=== PATIENT | female | born 1980 | race Caucasian/White ===

== ENCOUNTER 2016-10-21 14:35 | Inpatient (IN) | payer BC, OTHER ==
[~2016-10-21] VITALS: Ht 170.2 cm; Wt 99.8 kg
--- OUTSIDE RECORDS SUMMARY | 2016-10-21 14:58 | XMS REPORT | Continuity of Care Document ---
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 Medications No medication information available. Social History Social History Problem Response Recorded Date/Time Recent Foreign Travel No 05/16/2016 7:51am Recent Infectious Disease Exposure No 05/16/2016 7:51am Hospital Discharge Instructions No hospital discharge instructions. Plan of Care Discharge Date 05/16/16 8:16am Instructions/Education Provided DR. ANG-POST EPIDURAL INST Prescriptions See Medication Section Functional Status No functional status results. Allergies, Adverse Reactions, Alerts No allergy information available. Immunizations No immunization records. Vital Signs Acute Vital Signs Vital Response Date/Time Temperature (Fahrenheit) 97.6 degrees F (97.6 - 99.5) 05/16/2016 7:50am Temperature (Calculated Celsius) 36.11636 degrees C (36.4 - 37.5) 05/16/2016 7:50am Temperature Source Tympanic 05/16/2016 7:50am Pulse Rate (adult) 106 bpm (60 - 90) 05/16/2016 8:15am Respiratory Rate 18 bpm (12 - 24) 05/16/2016 8:15am O2 Sat by Pulse Oximetry 98 % (88 - 100) 05/16/2016 8:15am Blood Pressure 144/104 mm Hg 05/16/2016 8:15am Blood Pressure Mean 111 mm Hg 05/16/2016 7:50am Pain Numeric Pain Scale 8 05/16/2016 8:15am Height (Feet) 5 feet 05/16/2016 7:49am Height (Inches) 7.00 inches 05/16/2016 7:49am Height (Calculated Centimeters) 170.839906 cm 05/16/2016 7:49am Weight (Pounds) 220 pounds 05/16/2016 7:49am Weight (Ounces) 0.0 oz 05/16/2016 7:49am Weight (Calculated Grams) 16743.32 gm 05/16/2016 7:49am Weight (Calculated Kilograms) 99.644186 kilograms 05/16/2016 7:49am Calculated BMI 34.5 05/16/2016 7:49am Results No known relevant diagnostic tests, laboratory data and/or discharge summary. Procedures No known history of procedures. Encounters Encounter Location Arrival/Admit Date Discharge/Depart Date Attending Provider Departed Clinic [facility] 05/16/16 7:28am 05/16/16 8: 16am NICHOLAS ANG MD
[2016-10-21] MEDS ORDERED: HYDROcodone/APAP 5 MG/325 MG (LORTAB) TAB PO PRN (15:00)
[2016-10-21] MEDS ORDERED: ACETAMINOPHEN 500 MG TAB (TYLENOL) PO PRN (15:00)
[2016-10-21] MEDS ORDERED: RT-BUDESONIDE NEBS 0.5 MG/2ML (PULMICORT) AMP ONE (15:00)
[2016-10-21] MEDS ORDERED: LACTULOSE SYRUP 10GM/15ML (ENULOSE) 30ML UDC PO PRN (15:00)
[2016-10-21] MEDS ORDERED: SENNA W/DOCUSATE (SENOKOT S) TABLET PO PRN (15:00)
[2016-10-21] MEDS ORDERED: ONDANSETRON 4 MG/2 ML (SDV) Z0FRAN IVP PRN (15:00)
[2016-10-21] MEDS ORDERED: POLYETHYLENE GLYCOL 17 GM (MIRALAX) PACK PO PRN (15:00)
[2016-10-21] MEDS ORDERED: RT-ALBUTEROL/IPRATROPIUM 3 ML (DUONEB) VIAL ONE (15:01)
[2016-10-21] MEDS: RT-ALBUTEROL/IPRATROPIUM 3 ML (DUONEB) VIAL INH SCH ×3 (15:10→22:26)
[2016-10-21] MEDS: RT-BUDESONIDE NEBS 0.5 MG/2ML (PULMICORT) AMP INH SCH (15:10)
[2016-10-21] MEDS ORDERED: CATHETER FLUSH 10 ML SYR IV PRN (15:15)
[2016-10-21] MEDS: cefTRIAXone INJECTION 1,000 MG in NORMAL SALINE (BAXTER MINI) 50 ML IV SCH (15:21)
[2016-10-21] MEDS: AZITHROMYCIN IV ADD-VANTAGE 500 MG in SODIUM CHLORIDE (ADD-VANTAGE) 250 ML IV SCH (15:22)
[2016-10-21] MEDS: ALPRAZolam 0.5 MG (XANAX) TAB PO PRN (15:26)
[2016-10-21] MEDS: ENOXAPARIN 40 MG/0.4 ML (LOVENOX) SYR SC SCH (15:26)
[2016-10-21] MEDS ORDERED: NS 100 ML (IVPB) BAG IV ONE (15:30)
[2016-10-21] MEDS ORDERED: MIRT30TA PO (15:30)
[2016-10-21] MEDS ORDERED: IOHEXOL 350 MG/ML 150 ML (OMNIPAQUE 350) VIAL IV ONE (15:30)
[2016-10-21] MEDS ORDERED: FLUT1DIS26 IH (15:30)
[2016-10-21] MEDS ORDERED: TRAZ100T92 PO (15:30)
[2016-10-21] MEDS ORDERED: ALPR0.5T7 PO (15:30)
[2016-10-21] MEDS ORDERED: HYDR-3781 PO (15:30)
[2016-10-21] MEDS ORDERED: methylPREDNISolone 40 MG/ML (Solu-MEDROL) VIAL IV SCH (15:45)
--- NOTE | 2016-10-21 16:08 | Diagnostic Imaging Report ---
INDICATION: Dyspnea and chest pain. TIME OF EXAMINATION: 1608 hours. FINDINGS: The heart size and pulmonary vascularity are within normal limits. The lungs are clear bilaterally. IMPRESSION: Unremarkable chest. Dictated by: Dictated on workstation # [id number]
--- NOTE | 2016-10-21 16:16 | Diagnostic Imaging Report ---
PROCEDURE: CT angiography of the chest with contrast. TECHNIQUE: Multiple contiguous axial images were obtained through the chest after uneventful bolus administration of intravenous contrast. Reconstructed CTA MIP acquisitions were also performed. INDICATION: Shortness of breath. FINDINGS: There are no prior CTA chest examinations available for comparison. The plain film examination of the chest performed earlier today failed to show any sign of an acute cardiopulmonary abnormality. On this exam, there is no defect within the pulmonary arteries to indicate a pulmonary embolus. The aorta is not abnormally dilated, and there is no sign of a dissection. The heart size is within normal limits. Coronary artery calcifications were not identified. The lungs are generally clear and well aerated. There is no sign of failure, pneumonia, or pleural effusion to suggest an acute abnormality. There is no mediastinal or hilar adenopathy. The thyroid gland, where visualized, is generally unremarkable. There is no obvious breast mass. The sections through the upper abdomen show that the liver is prominent and of lower density than usually seen. This appearance does suggest fatty metamorphosis. The bone windows show no evidence for a fracture or for a destructive lesion. IMPRESSION: 1. There is no evidence for an acute cardiopulmonary abnormality. In particular, there is no sign of a pulmonary embolus or of a dissection. 2. The appearance of the liver does suggest fatty metamorphosis. 3. These results were discussed with Dr. Alejandrina Andersen. Dictated by: Dictated on workstation # [id number]
[2016-10-21 16:17] VITALS: BP 116/82
[2016-10-21 16:27] LABS: BASOPHILS # (AUTO) 0.1 10^3/uL (0.0-0.1); BASOPHILS % (AUTO) 1 % (0-10); EOSINOPHILS # (AUTO) 0.1 10^3/uL (0.0-0.3); EOSINOPHILS % (AUTO) 1 % (0-10); LYMPHOCYTES # (AUTO) 2.3 X 10^3 (1.0-4.0); LYMPHOCYTES % (AUTO) 34 % (12-44); MEAN CORPUSCULAR HEMOGLOBIN 32 PG (25-34); MEAN CORPUSCULAR HGB CONC 35 G/DL (32-36); MEAN CORPUSCULAR VOLUME 89 FL (80-99); MEAN PLATELET VOLUME 9.6 FL (7.4-10.4); MONOCYTES # (AUTO) 0.5 X 10^3 (0.0-1.0); MONOCYTES % (AUTO) 8 % (0-12); NEUTROPHILS # (AUTO) 3.8 X 10^3 (1.8-7.8); NEUTROPHILS % (AUTO) 57 % (42-75); PLATELET COUNT 256 10^3/uL (130-400); RED BLOOD COUNT 4.73 10^6/uL (4.35-5.85); WHITE BLOOD COUNT 6.7 10^3/uL (4.3-11.0)
[2016-10-21 17:01] LABS: ALANINE AMINOTRANSFERASE 72 U/L (0-55); ANION GAP 10 MMOL/L (5-14); ASPARTATE AMINO TRANSFERASE 38 U/L (5-34); BILIRUBIN,TOTAL 0.5 MG/DL (0.1-1.0); BLOOD UREA NITROGEN 11 MG/DL (7-18); BUN/CREATININE RATIO 17; CALCIUM 8.7 MG/DL (8.5-10.1); CARBON DIOXIDE 21 MMOL/L (21-32); CHLORIDE 103 MMOL/L (98-107); CREATININE SERUM 0.66 MG/DL (0.60-1.30); GFR ESTIMATED > 60; GLUCOSE 103 MG/DL (70-105); POTASSIUM 3.1 MMOL/L (3.6-5.0); SODIUM 134 MMOL/L (135-145); TOTAL PROTEIN 6.3 G/DL (6.4-8.2)
[2016-10-21 17:06] LABS: TROPONIN I < 0.30 NG/ML (<0.30)
[2016-10-21] MEDS ORDERED: NS IV 1000 ML 1,000 ML IV ONE (17:15)
[2016-10-21] MEDS ORDERED: MAGNESIUM 1 GM/100 ML IVPB 100 ML IV ONE (17:15)
[2016-10-21] MEDS: methylPREDNISolone 125 MG (Solu-MEDROL) VIAL IV SCH (17:28)
[2016-10-21 17:29] LABS: PROTHROMBIN TIME PATIENT 13.2 SEC (12.2-14.7)
[2016-10-21] MEDS: POTASSIUM CL 10MEQ/50ML IVPB 50 ML IV SCH ×4 (18:46→22:55)
[2016-10-21 18:54] LABS: ABG BASE EXCESS -1.2 MMOL/L (-2.5-2.5); ABG HCO3 23 MMOL/L (23-27); ABG OXYGEN SATURATION 96 % (94-100); ABG PCO2 38 MMHG (35-45); ABG PO2 65 MMHG (79-93); ABG TCO2 24.4 MMOL/L (21.0-31.0); PATIENT TEMP 98.4
[2016-10-21 19:05] VITALS: BP 103/64
[2016-10-21] MEDS: NS IV 1000 ML 1,000 ML IV SCH (19:28)
[2016-10-21 19:39] LABS: BILIRUBIN,URINE NEGATIVE (NEGATIVE); KETONES,URINE NEGATIVE (NEGATIVE); LEUKOCYTE ESTERASE ,URINE 1+ (NEGATIVE); NITRITE,URINE NEGATIVE (NEGATIVE); PH,URINE 5 (5-9); PROTEIN,URINE 2+ (NEGATIVE); UROBILINOGEN,URINE NORMAL (NORMAL)
[2016-10-21 19:50] LABS: WBC,URINE 0-2 /HPF
[2016-10-21] MEDS: CATHETER FLUSH 10 ML SYR IV SCH (20:48)
[2016-10-21] MEDS ORDERED: traZODone 100 MG (DESYREL) TAB ONE (21:31)
[2016-10-21] MEDS ORDERED: MIRTAZAPINE 15 MG (REMERON) TAB ONE (21:31)
[2016-10-21] MEDS: MIRTAZAPINE 15 MG (REMERON) TAB PO SCH (21:45)
[2016-10-21] MEDS: traZODone 100 MG (DESYREL) TAB PO SCH (21:45)
[2016-10-21 23:40] VITALS: BP 113/71
[2016-10-22] MEDS: NS IV 1000 ML 1,000 ML IV SCH ×2 (00:37→06:08)
[2016-10-22] MEDS: methylPREDNISolone 125 MG (Solu-MEDROL) VIAL IV SCH ×3 (00:37→21:33)
[2016-10-22] MEDS: RT-ALBUTEROL/IPRATROPIUM 3 ML (DUONEB) VIAL INH SCH ×6 (02:41→22:14)
[2016-10-22 03:46] VITALS: BP 112/75
[2016-10-22] MEDS: CATHETER FLUSH 10 ML SYR IV SCH ×3 (06:00→21:32)
[2016-10-22 06:31] LABS: BASOPHILS % (AUTO) 0 % (0-10); EOSINOPHILS % (AUTO) 0 % (0-10); LYMPHOCYTES % (AUTO) 9 % (12-44); MEAN CORPUSCULAR HEMOGLOBIN 31 PG (25-34); MEAN CORPUSCULAR HGB CONC 35 G/DL (32-36); MEAN CORPUSCULAR VOLUME 90 FL (80-99); MEAN PLATELET VOLUME 9.6 FL (7.4-10.4); MONOCYTES # (AUTO) 0.2 X 10^3 (0.0-1.0); MONOCYTES % (AUTO) 1 % (0-12); NEUTROPHILS # (AUTO) 9.9 X 10^3 (1.8-7.8); NEUTROPHILS % (AUTO) 89 % (42-75); PLATELET COUNT 263 10^3/uL (130-400); RED CELL DISTRIBUTION WIDTH 12.9 % (10.0-14.5); WHITE BLOOD COUNT 11.1 10^3/uL (4.3-11.0)
[2016-10-22 06:50] LABS: BAND NEUTROPHILS 2 %; BASOPHILS % (MANUAL) 0 %; EOSINOPHILS % (MANUAL) 0 %; LYMPHOCYTES % (MANUAL) 8 %; NEUTROPHILS % (MANUAL) 88 %; REACTIVE LYMPHOCYTES 2 %
--- NOTE | 2016-10-22 06:53 | Pulmonary Consultation ---
History of Present Illness History of Present Illness Date of Consultation 10/22/16 06:51 Date of Admission History of Present Illness 36yo WF with hx of asthma, and anxiety directly admitted from Dr. Andersen's office secondary to asthma AE and progressive SOB. Pt has been treated as out patient for acute bronchitis however has continued to worsen despite treatment. I am consulted for pulmonary management. Allergies and Home Medications Allergies Coded Allergies: zinc oxide (Verified Allergy, Unknown, 10/21/16) Home Medications Alprazolam 0.5 Mg Tablet 0.5 MG PO DAILY PRN PRN ANXIETY (Reported) Amoxicillin/Potassium Clav 1 Each Tablet #8 1 EACH PO BID Prescribed by: YASH ANDERSEN on 10/23/16927 Fluticasone/Salmeterol 1 Each Blst.w.dev 1 PUFF IH BID (Reported) HAS NOT PICKED UP FROM PHARMACY YET Hydroxyzine Pamoate 25 Mg Capsule 25 MG PO QID PRN PRN ANXIETY (Reported) Ipratropium/Albuterol Sulfate 3 Ml Ampul.neb #90 3 ML INH RTQ4HR Prescribed by: YASH ANDERSEN on 10/23/16927 Lactulose 20 Gm/30 Ml Solution #8 10 GM PO BID PRN PRN CONSTIPATION Prescribed by: YASH ANDERSEN on 10/23/16927 Mirtazapine 30 Mg Tablet 45 MG PO HS (Reported) TAKES 1 & 1/2 OF A (30 MG) TABLET Prednisone 10 Mg Tab.ds.pk #42 10 MG PO DAILY Take 6 tabs(60mg)daily,decrease by 1 tab(10mg)every other day. Prescribed by: YASH ANDERSEN on 10/23/16927 Trazodone HCl 100 Mg Tablet 100 MG PO HS (Reported) Past Rxpgysl-Xsgppa-Qdfqyj Hx Patient Social History Alcohol Use: Denies Use Recreational Drug Use: Yes (uses pot about 2 times a week ) Drug of Choice: pot Smoking Status: Current Everyday Smoker Type Used: Cigarettes Recent Foreign Travel: No Contact w/Someone Who Travel: No Recent Hopitalizations: No Physical Abuse Screen: No Sexual Abuse: No Immunizations Up To Date Date of Influenza Vaccine: Jul 15, 2016 Seasonal Allergies Seasonal Allergies: No Respiratory Respiratory Disorders: Asthma Psychosocial Behavioral Health Disorders: Anxiety, Depression Blood Transfusions Adverse Reaction to a Blood Tr: No Family Medical History Family Medial History: Diabetes mellitus 19 FATHER, Onset:40's - 50 Review of Systems Constitutional: No: Chills, Fever, Malaise, Other, Sweats, Weakness Eyes: No: Conjunctivae inflammation, Eyelid inflammation, Other, Pain, Redness , Vision change ENT: No: Ear discharge, Ear pain, Mouth pain, Mouth swelling, Nose congestion, Nose discharge, Nose pain, Other, Throat pain, Throat swelling Respiratory: : Cough: Dry: SOB with excertion: Shortness of breath Cardiovascular: : Paroxysmal Noc. DyspneaNo: Chest Pain, Edema, Lt Headedness, Orthopnea, Other, Palpitations Gastrointestinal: No: Abdominal Pain, Constipation, Diarrhea, Hematochezia, Melena, Nausea, Other, Vomiting Genitourinary: No Dysuria, No Frequency, No Incontinence, No Hematuria, No Retention, No Other Neurological: : Weakness Exam Exam Vital Signs Date Time Temp Pulse Resp B/P Pulse Ox O2 Delivery O2 Flow Rate FiO2 10/22/16 03:46 98.1 97 112/75 95 Room Air 10/22/16 02:41 92 10/22/16 01:00 96 10/21/16 23:40 98.5 107 113/71 94 Room Air 10/21/16 22:26 93 10/21/16 21:00 Room Air 10/21/16 19:12 92 10/21/16 19:05 97.8 88 20 103/64 96 Room Air 10/21/16 19:00 103 10/21/16 16:46 99 10/21/16 16:17 98.1 98 24 116/82 98 Nasal Cannula 2.00 10/21/16 15:15 2.00 10/21/16 15:10 99 2.00 10/21/16 15:00 Nasal Cannula 2.00 I & O 10/22/16 07:00 Intake Total 2000 ml Output Total 300 ml Balance 1700 ml General Appearance: No Apparent Distress WD/WN HEENT: PERRL/EOMI Neck: Full Range of Motion Normal Inspection Non Tender Respiratory: Chest Non Tender Decreased Breath Sounds Cardiovascular: Regular Rate, Rhythm No Edema No Gallop Gastrointestinal: normal bowel sounds non tender soft Extremity: Normal Capillary Refill Neurologic/Psychiatric: Alert Oriented x3 Results Lab Laboratory Tests 10/21/16 16:10 10/22/16 06:14 Assessment/Plan Assessment/Plan -status asthmaticus -SVNs -solumedrol Pt is feeling much improved Clinical Quality Measures DVT/VTE Risk/Contraindication: Risk Factor Score Per Nursin RFS Level Per Nursing on Admit: 2=Moderate RADHIKA BURGOS DO Oct 22, 2016 06:53
[2016-10-22 07:14] LABS: ALANINE AMINOTRANSFERASE 61 U/L (0-55); ANION GAP 11 MMOL/L (5-14); ASPARTATE AMINO TRANSFERASE 24 U/L (5-34); BILIRUBIN,TOTAL 0.3 MG/DL (0.1-1.0); BLOOD UREA NITROGEN 8 MG/DL (7-18); BUN/CREATININE RATIO 12; CALCIUM 8.4 MG/DL (8.5-10.1); CARBON DIOXIDE 17 MMOL/L (21-32); CHLORIDE 109 MMOL/L (98-107); CREATININE SERUM 0.66 MG/DL (0.60-1.30); GFR ESTIMATED > 60; GLUCOSE 193 MG/DL (70-105); POTASSIUM 3.9 MMOL/L (3.6-5.0); SODIUM 137 MMOL/L (135-145); TOTAL PROTEIN 6.3 G/DL (6.4-8.2)
[2016-10-22 08:00] VITALS: BP 113/78
[2016-10-22] MEDS ORDERED: cefTRIAXone 1 GM (ROCEPHIN) VIAL ONE (08:10)
[2016-10-22] MEDS ORDERED: NORMAL SALINE (BAXTER MINI) 50 ML IV ONE (08:11)
[2016-10-22] MEDS: RT-BUDESONIDE NEBS 0.5 MG/2ML (PULMICORT) AMP INH SCH (08:18)
[2016-10-22] MEDS ORDERED: SODIUM CHLORIDE (ADD-VANTAGE) 250 ML ONE (08:22)
[2016-10-22] MEDS ORDERED: AZITHROMYCIN IV ADD-VANTAGE 500 MG IV ONE (08:22)
[2016-10-22] MEDS: cefTRIAXone INJECTION 1,000 MG in NORMAL SALINE (BAXTER MINI) 50 ML IV SCH (08:26)
[2016-10-22] MEDS: AZITHROMYCIN IV ADD-VANTAGE 500 MG in SODIUM CHLORIDE (ADD-VANTAGE) 250 ML IV SCH (08:30)
--- NOTE | 2016-10-22 08:53 | History & Physical-Hospitalist ---
BRITTANI ARIZA MED STUDENT 10/22/16 0853: HPI History of Present Illness: HPI/Chief Complaint CC: shortness of breath HPI: Ms. Shah is a 36yoWF smoker with a PMH of asthma, depression, and anxiety who was directly admitted from Dr. Andersen's clinic on 10/21/16 for asthma exacerbation. She has been dealing with bronchitis for months now, and has been on antibiotics off and on with little improvement. On Thursday she began feeling sick and congested. By Thursday, the same day as her appointment with Dr. Andersen , she felt she was unable to take a deep breath. This triggered her anxiety. By the time she had her appointment, her lungs just did not seem to be improving, and she needed to be admitted to the hospital. Overnight she received IV antibiotics, breathing treatments, and steroids with some supplemental oxygen. By the end of the night she no longer required oxygen and was on room air. She is doing very well this morning, and states her shortness of breath is all but gone. She says she feels ready to go home today if possible. Per nursing: patient had a productive cough yesterday which has cleared up today. There was a bowel movement yesterday as well. Patient sounds better today with minimal residual wheezing on the right. Her PCP is Dr. Andersen. Her pharmacy is [facility]. She is still smoking 1/2 ppd of cigarettes and has for 22 years. She is interested in quitting at this time. She is currently living alone at home with a dog in [place]. She does not have any seasonal allergies. Source: patient, RN/MD Exam Limitations: no limitations Date Seen 10/22/16 Attending Physician Alejandrina Andersen DO PCP Alejandrina Andersen DO Referring Physician Date of Admission Oct 21, 2016 at 14:55 Home Medications & Allergies Home Medications Reviewed patient Home Medication Reconciliation Form Allergies Coded Allergies: zinc oxide (Verified Allergy, Unknown, 10/21/16) Past Mmpshks-Vnnltn-Rhpxcs Hx Patient Social History Marrital Status: single Employed/Student: employed Alcohol Use: Denies Use Recreational Drug Use: Yes (uses pot about 2 times a week ) Drug of Choice: pot Smoking Status: Current Everyday Smoker Type Used: Cigarettes Physical Abuse Screen: No Sexual Abuse: No Recent Foreign Travel: No Contact w/other who traveled: No Recent Hopitalizations: No Immunizations Up To Date Date of Influenza Vaccine: Jul 15, 2016 Seasonal Allergies Seasonal Allergies: No Surgeries Surgeries: Appendectomy Respiratory Respiratory Disorders: Asthma Psychosocial Behavioral Health Disorders: Anxiety, Depression Blood Transfusions Adverse Reaction to a Blood Tr: No Family Medical History Family Hx: Diabetes mellitus 19 FATHER, Onset:40's - 50 Physical Exam Physical Exam Vital Signs Vital Sign - Last 12Hours 10/21/16 10/21/16 10/21/16 15:00 15:10 16:17 Temp 98.1 Pulse 98 Resp 24 B/P 116/82 Pulse Ox 99 O2 Delivery Nasal Cannula O2 Flow Rate 2.00 Capillary Refill : Results Results/Procedures Lab Laboratory Tests 10/21/16 16:10 10/22/16 06:14 Clinical Quality Measures DVT/VTE Risk/Contraindication: Risk Factor Score Per Nursin RFS Level Per Nursing on Admit: 2=Moderate ANIBAL BUTLER 11/03/16 1416: Home Medications & Allergies Allergies Coded Allergies: zinc oxide (Verified Allergy, Unknown, 10/21/16) Past Vfsqous-Rmcnxd-Cajqgl Hx Family Medical History Family Hx: Diabetes mellitus 19 FATHER, Onset:40's - 50 BRITTANI ARIZA MED STUDENT Oct 22, 2016 08:53 ANIBAL BUTLER Nov 03, 2016 14:16
[2016-10-22] MEDS ORDERED: ALPRAZolam 0.5 MG (XANAX) TAB PO PRN (10:00)
[2016-10-22] MEDS ORDERED: hydrOXYzine (VISTARIL) 25 MG CAP PO PRN (10:00)
--- NOTE | 2016-10-22 10:30 | History & Physical-Hospitalist ---
HPI History of Present Illness: HPI/Chief Complaint CC: Shortness of breath HPI: Ms. Shah is a 36yoWF smoker with a PMH of asthma, depression, and anxiety who was directly admitted from Dr. Andersen's clinic on 10/21/16 for asthma exacerbation. She has been dealing with bronchitis for months now, and has been on antibiotics off and on with little improvement. On Thursday she began feeling sick and congested. By Thursday, the same day as her appointment with Dr. Andersen , she felt she was unable to take a deep breath. This triggered her anxiety. By the time she had her appointment, her lungs just did not seem to be improving, and she needed to be admitted to the hospital. Overnight she received IV antibiotics, breathing treatments, and steroids with some supplemental oxygen. By the end of the night she no longer required oxygen and was on room air. She is doing very well this morning, and states her shortness of breath is all but gone. She says she feels ready to go home today if possible. Per nursing: patient had a productive cough yesterday which has cleared up today. There was a bowel movement yesterday as well. Patient sounds better today with minimal residual wheezing on the right. Her PCP is Dr. Andersen. Her pharmacy is [facility]. She is still smoking 1/2 ppd of cigarettes and has for 22 years. She is interested in quitting at this time. She is currently living alone at home with a dog in [place]. She does not have any seasonal allergies. Patient Interview: Pt states that she feels much better than the day before. Pt is able to breathe deeper and has less anxiety. Dr. Andersen discusses with pt that lactic acid was elevated due to lack of oxygen. Dr. Andersen informs pt that she is on strong steroids, and will likely require some additional time in hospital. Dr. Andersen discusses reducing the steroids today with possible DC tomorrow. Physical exam stable. Lung sounds improved. Dr. Andersen informs pt that she does not have pneumonia, but was positive for bronchitis. Dr. Andersen discusses smoking cessation with pt. Pt uses [facility]. Pt has sufficient inhaler meds at home, but has little supply of breathing treatment meds. Plan: Reduce steroids to 80 q12 in line for DC tomorrow. HDB Newco IVF Smoking cessation education Check labs in morning Reconcile home meds DC telemetry Pt will begin ambulating Scribed by Sean Garay under the direct supervision of Dr. Andersen. Source: patient, RN/MD Exam Limitations: no limitations Date Seen 10/22/16 Attending Physician Alejandrina Andersen DO PCP Alejandrina Andersen DO Referring Physician Date of Admission Oct 21, 2016 at 14:55 Home Medications & Allergies Home Medications Reviewed patient Home Medication Reconciliation Form Allergies Coded Allergies: zinc oxide (Verified Allergy, Unknown, 10/21/16) Past Mqejiki-Wgupep-Ftbtky Hx Patient Social History Marrital Status: single Employed/Student: employed Alcohol Use: Denies Use Recreational Drug Use: Yes (uses pot about 2 times a week ) Drug of Choice: pot Smoking Status: Current Everyday Smoker Type Used: Cigarettes Physical Abuse Screen: No Sexual Abuse: No Recent Foreign Travel: No Contact w/other who traveled: No Recent Hopitalizations: No Immunizations Up To Date Date of Influenza Vaccine: Jul 15, 2016 Seasonal Allergies Seasonal Allergies: No Surgeries HX Surgeries: Yes Surgeries: Appendectomy Respiratory Hx Respiratory Disorders: Yes Respiratory Disorders: Asthma Cardiovascular Hx Cardiovascular Disorders: Yes Cardiac Disorders: High Cholesterol Neurological Hx Neurological Disorders: Yes Neurological Disorders: Headaches /Migraines Genitourinary Hx Genitourinary Disorders: No Gastrointestinal Hx Gastrointestinal Disorders: No Musculoskeletal Hx Musculoskeletal Disorders: Yes Musculoskeletal Disorders: Degenerate Disk Disease, Chronic Back Pain Endocrine Hx Endocrine Disorders: Yes Endocrine Disorders: Diabetes, Non-Insulin dep HEENT HX ENT Disorders: No Cancer Hx Cancer: No Psychosocial Hx Psychiatric Problems: No Behavioral Health Disorders: Anxiety, Depression Blood Transfusions Adverse Reaction to a Blood Tr: No Family Medical History Family Hx: Diabetes mellitus 19 FATHER, Onset:40's - 50 Review of Systems Constitutional: No chills, No diaphoresis, No dizziness EENTM: no symptoms reported Respiratory: short of breath Cardiovascular: no symptoms reported Gastrointestinal: no symptoms reported Genitourinary: no symptoms reported Musculoskeletal: no symptoms reported Skin: no symptoms reported Psychiatric/Neurological: Anxiety Depressed All Other Systems Reviewed Negative Unless Noted: Yes Physical Exam Physical Exam Vital Signs Vital Sign - Last 12Hours 10/21/16 10/21/16 10/21/16 15:00 15:10 16:17 Temp 98.1 Pulse 98 Resp 24 B/P 116/82 Pulse Ox 99 O2 Delivery Nasal Cannula O2 Flow Rate 2.00 Capillary Refill : General Appearance: No Apparent Distress WD/WN Chronically ill HEENT: PERRL/EOMI Normal ENT Inspection Pharynx Normal Neck: Full Range of Motion Normal Inspection Non Tender Supple Respiratory: Chest Non Tender No Accessory Muscle Use No Respiratory Distress Wheezing Cardiovascular: Regular Rate, Rhythm No Edema No Gallop No JVD No Murmur Normal Peripheral Pulses Gastrointestinal: Normal Bowel Sounds No Organomegaly No Pulsatile Mass Non Tender Soft Rectal: Deferred Back: Normal Inspection No CVA Tenderness Extremity: Normal Capillary Refill Normal Inspection Normal Range of Motion Non Tender No Calf Tenderness Neurologic/Psychiatric: Alert Oriented x3 No Motor/Sensory Deficits Normal Mood/Affect Skin: Normal Color Warm/Dry Lymphatic: No Adenopathy Results Results/Procedures Lab Laboratory Tests 10/21/16 16:10 10/22/16 06:14 Radiology CTA chest: There is no evidence for an acute cardiopulmonary abnormality. In particular, there is no sign of a pulmonary chest xray: Unremarkable chest. Assessment/Plan Admission Diagnosis 1. status asthmaticus failed PO abx and steroids x 2 outpt 2. depression 3. anxiety 4. current everyday smoker 5. hypoxia 6. mildly elevated liver enzymes 7. early DM just ordered dietary consultation that was completed this week 8. HLP 9. Obesity Assessment and Plan Reduce steroids to 80 q12 in line for DC tomorrow. Continue antibiotics Heplock IVF Smoking cessation education Check labs in morning Reconcile home meds DC telemetry Pt will begin ambulating Clinical Quality Measures DVT/VTE Risk/Contraindication: Risk Factor Score Per Nursin RFS Level Per Nursing on Admit: 2=Moderate ALEJANDRINA ANDERSEN DO Oct 22, 2016 10:30
[2016-10-22] MEDS: ENOXAPARIN 40 MG/0.4 ML (LOVENOX) SYR SC SCH (15:49)
[2016-10-22 16:30] VITALS: BP 123/80
[2016-10-22] MEDS ORDERED: traZODone 100 MG (DESYREL) TAB PO SCH ×2 (21:00)
[2016-10-22] MEDS ORDERED: MIRTAZAPINE 15 MG (REMERON) TAB PO SCH (21:00)
[2016-10-22] MEDS ORDERED: MIRTAZAPINE 45 MG PO SCH (21:00)
[2016-10-22] MEDS: traZODone 100 MG (DESYREL) TAB PO SCH (21:33)
[2016-10-22] MEDS: MIRTAZAPINE 15 MG (REMERON) TAB PO SCH (21:33)
[2016-10-22] MEDS: ALPRAZolam 0.5 MG (XANAX) TAB PO PRN (21:39)
[2016-10-23] VITALS: BP 108/56
[2016-10-23] MEDS: RT-ALBUTEROL/IPRATROPIUM 3 ML (DUONEB) VIAL INH SCH ×2 (02:21→07:08)
[2016-10-23 06:15] LABS: BASOPHILS % (AUTO) 0 % (0-10); EOSINOPHILS % (AUTO) 0 % (0-10); LYMPHOCYTES # (AUTO) 1.3 X 10^3 (1.0-4.0); LYMPHOCYTES % (AUTO) 8 % (12-44); MEAN CORPUSCULAR HEMOGLOBIN 31 PG (25-34); MEAN CORPUSCULAR HGB CONC 34 G/DL (32-36); MEAN CORPUSCULAR VOLUME 91 FL (80-99); MONOCYTES # (AUTO) 0.5 X 10^3 (0.0-1.0); MONOCYTES % (AUTO) 3 % (0-12); NEUTROPHILS # (AUTO) 15.6 X 10^3 (1.8-7.8); NEUTROPHILS % (AUTO) 89 % (42-75); PLATELET COUNT 297 10^3/uL (130-400); RED BLOOD COUNT 4.49 10^6/uL (4.35-5.85); RED CELL DISTRIBUTION WIDTH 13.6 % (10.0-14.5); WHITE BLOOD COUNT 17.5 10^3/uL (4.3-11.0)
[2016-10-23 06:32] LABS: BAND NEUTROPHILS 1 %; BASOPHILS % (MANUAL) 0 %; EOSINOPHILS % (MANUAL) 0 %; LYMPHOCYTES % (MANUAL) 12 %; NEUTROPHILS % (MANUAL) 86 %
[2016-10-23 06:40] LABS: ALANINE AMINOTRANSFERASE 51 U/L (0-55); ALBUMIN 4.3 G/DL (3.2-4.5); ANION GAP 11 MMOL/L (5-14); ASPARTATE AMINO TRANSFERASE 19 U/L (5-34); BILIRUBIN,TOTAL 0.3 MG/DL (0.1-1.0); BLOOD UREA NITROGEN 13 MG/DL (7-18); BUN/CREATININE RATIO 18; CALCIUM 8.9 MG/DL (8.5-10.1); CARBON DIOXIDE 20 MMOL/L (21-32); CHLORIDE 106 MMOL/L (98-107); CREATININE SERUM 0.73 MG/DL (0.60-1.30); GFR ESTIMATED > 60; GLUCOSE 177 MG/DL (70-105); POTASSIUM 4.1 MMOL/L (3.6-5.0); SODIUM 137 MMOL/L (135-145); TOTAL PROTEIN 6.8 G/DL (6.4-8.2)
[2016-10-23] MEDS: CATHETER FLUSH 10 ML SYR IV SCH (06:41)
[2016-10-23] MEDS: RT-BUDESONIDE NEBS 0.5 MG/2ML (PULMICORT) AMP INH SCH (07:09)
[2016-10-23 08:00] VITALS: BP 130/82
[2016-10-23] MEDS: cefTRIAXone INJECTION 1,000 MG in NORMAL SALINE (BAXTER MINI) 50 ML IV SCH (08:03)
[2016-10-23] MEDS: methylPREDNISolone 125 MG (Solu-MEDROL) VIAL IV SCH (08:03)
[2016-10-23] MEDS: AZITHROMYCIN IV ADD-VANTAGE 500 MG in SODIUM CHLORIDE (ADD-VANTAGE) 250 ML IV SCH (08:03)
[2016-10-23] MEDS ORDERED: LACTULOSE SYRUP 10GM/15ML (ENULOSE) 30ML UDC PO NR (09:15)
[2016-10-23] MEDS ORDERED: PRED10TA22 PO (09:28)
[2016-10-23] MEDS ORDERED: AMOX-358 PO (09:28)
[2016-10-23] MEDS ORDERED: IPRA3AMP INH (09:28)
[2016-10-23] MEDS ORDERED: LACT20SO2 PO (09:28)
--- NOTE | 2016-10-23 09:29 | Discharge Instructions ---
Discharge Instructions Discharge Medications New, Converted or Re-Newed RX: Transmitted to Pharmacy New Medications: Amoxicillin/Potassium Clav (Augmentin 875-125 Tablet) 1 Each Tablet 1 EACH PO BID #8 TAB Prednisone (Prednisone) 10 Mg Tab.ds.pk 10 MG PO DAILY Take 6 tabs(60mg)daily,decrease by 1 tab(10mg)every other day. # 42 PKG Ipratropium/Albuterol Sulfate (Iprat-Albut 0.5-3(2.5) mg/3 ml) 3 Ml Ampul.neb 3 ML INH RTQ4HR #90 INHALER Lactulose (Lactulose) 20 Gm/30 Ml Solution 10 GM PO BID PRN CONSTIPATION #8 OZ Continued Medications: Alprazolam (Alprazolam) 0.5 Mg Tablet 0.5 MG PO DAILY PRN ANXIETY TAB Fluticasone/Salmeterol (Advair 250-50 Diskus) 1 Each Blst.w.dev 1 PUFF IH BID HAS NOT PICKED UP FROM PHARMACY YET Hydroxyzine Pamoate (Hydroxyzine Pamoate) 25 Mg Capsule 25 MG PO QID PRN ANXIETY CAP Mirtazapine (Remeron) 30 Mg Tablet 45 MG PO HS TAKES 1 & 1/2 OF A (30 MG) TABLET TAB Trazodone HCl (Trazodone HCl) 100 Mg Tablet 100 MG PO HS TAB Patient Instructions Goal/Follow Up Appt: Dr Andersen [place] office , 10/30/16 at 2:45pm Patient Instructions: Stop smoking Activity & Diet Discharge Diet: No Restrictions Activity as Tolerated: Yes YASH ANDERSEN DO Oct 23, 2016 09:29
--- NOTE | 2016-10-23 09:30 | Discharge Summary-Hospitalist ---
Diagnosis/Chief Complaint Date of Admission Oct 21, 2016 at 14:55 Date of Discharge Discharge Date: Oct 23, 2016 Admission Diagnosis 1. status asthmaticus failed PO abx and steroids x 2 outpt 2. depression 3. anxiety 4. current everyday smoker 5. hypoxia 6. mildly elevated liver enzymes 7. early DM just ordered dietary consultation that was completed this week 8. HLP 9. Obesity Discharge Diagnosis 1. status asthmaticus failed PO abx and steroids x 2 outpt 2. depression 3. anxiety 4. current everyday smoker 5. hypoxia 6. mildly elevated liver enzymes 7. early DM just ordered dietary consultation that was completed this week 8. HLP 9. Obesity Reduce steroids to 80 q12 in line for DC tomorrow. Continue antibiotics Heplock IVF Smoking cessation education Check labs in morning Reconcile home meds DC telemetry Pt will begin ambulating Reason Hospital Visit/Course CC: Shortness of breath HPI: Ms. Shah is a 36yoWF smoker with a PMH of asthma, depression, and anxiety who was directly admitted from Dr. Andersen's clinic on 10/21/16 for asthma exacerbation. She has been dealing with bronchitis for months now, and has been on antibiotics off and on with little improvement. On Thursday she began feeling sick and congested. By Thursday, the same day as her appointment with Dr. Andersen , she felt she was unable to take a deep breath. This triggered her anxiety. By the time she had her appointment, her lungs just did not seem to be improving, and she needed to be admitted to the hospital. Overnight she received IV antibiotics, breathing treatments, and steroids with some supplemental oxygen. By the end of the night she no longer required oxygen and was on room air. She is doing very well this morning, and states her shortness of breath is all but gone. She says she feels ready to go home today if possible. Per nursing: patient had a productive cough yesterday which has cleared up today. There was a bowel movement yesterday as well. Patient sounds better today with minimal residual wheezing on the right. Her PCP is Dr. Andersen. Her pharmacy is [facility]. She is still smoking 1/2 ppd of cigarettes and has for 22 years. She is interested in quitting at this time. She is currently living alone at home with a dog in [place]. She does not have any seasonal allergies. Patient Interview: Pt states that she feels much better than the day before. Pt is able to breathe deeper and has less anxiety. Dr. Andersen discusses with pt that lactic acid was elevated due to lack of oxygen. Dr. Andersen informs pt that she is on strong steroids, and will likely require some additional time in hospital. Dr. Andersen discusses reducing the steroids today with possible DC tomorrow. Physical exam stable. Lung sounds improved. Dr. Andersen informs pt that she does not have pneumonia, but was positive for bronchitis. Dr. Andersen discusses smoking cessation with pt. Pt uses [facility] pharmacy. Pt has sufficient inhaler meds at home, but has little supply of breathing treatment meds. Plan: Reduce steroids to 80 q12 in line for DC tomorrow. Heplock IVF Smoking cessation education Check labs in morning Reconcile home meds DC telemetry Pt will begin ambulating Scribed by Sean Garay under the direct supervision of Dr. Andersen. Note from 10/23/16: Patient doing much better and less wheezing and has received 2 breathing treatments and overall doing well walking well and eating well. She is constipated so we will give her a dose of lactulose and send that prescription into the pharmacy also but overall she feels well and is able to go home today and return back to work on Thursday with follow-up with me in one week. Absolute smoking cessation is required she understands this requirement and will follow- up with her in one week to provide any additional support she may need. Discharge Summary Discharge Physical Examination Allergies: Coded Allergies: zinc oxide (Verified Allergy, Unknown, 10/21/16) Vitals & I&Os Vital Signs Date Time Temp Pulse Resp B/P Pulse Ox O2 Delivery O2 Flow Rate FiO2 10/23/16 09:31 Room Air 10/23/16 08:00 97.9 94 19 130/82 95 10/22/16 08:23 0.00 Hospital Course Labs (last 24 hrs) Laboratory Tests 10/23/16 05:38: Alanine Aminotransferase (ALT/SGPT) 51, Albumin 4.3, Alkaline Phosphatase 55, Anion Gap 11, Aspartate Amino Transf (AST/SGOT) 19, BUN/Creatinine Ratio 18, Band Neutrophils 1, Basophils # (Auto) 0.0, Basophils % (Manual) 0, Basophils (% ) (Auto) 0, Blood Morphology Comment NORMAL, Blood Urea Nitrogen 13, Calcium Level 8.9, Carbon Dioxide Level 20L, Chloride Level 106, Creatinine 0.73, Eosinophils # (Auto) 0.0, Eosinophils % (Manual) 0, Eosinophils (%) (Auto) 0, Estimat Glomerular Filtration Rate > 60, Glucose Level 177H, Hematocrit 41, Hemoglobin 14.0, Lymphocytes # (Auto) 1.3, Lymphocytes % (Manual) 12, Lymphocytes (%) (Auto) 8L, Mean Corpuscular Hemoglobin 31, Mean Corpuscular Hemoglobin Concent 34, Mean Corpuscular Volume 91, Mean Platelet Volume 10.0, Monocytes # (Auto) 0.5, Monocytes % (Manual) 1, Monocytes (%) (Auto) 3, Neutrophils # (Auto) 15.6H, Neutrophils % (Manual) 86, Neutrophils (%) (Auto) 89H, Platelet Count 297, Potassium Level 4.1, Red Blood Count 4.49, Red Cell Distribution Width 13.6, Sodium Level 137, Total Bilirubin 0.3, Total Protein 6.8, White Blood Count 17.5H Microbiology 10/21/16 Blood Culture - Preliminary, Resulted No growth Pending Labs Laboratory Tests 10/23/16 05:38: Alanine Aminotransferase (ALT/SGPT) 51, Albumin 4.3, Alkaline Phosphatase 55, Anion Gap 11, Aspartate Amino Transf (AST/SGOT) 19, BUN/Creatinine Ratio 18, Band Neutrophils 1, Basophils # (Auto) 0.0, Basophils % (Manual) 0, Basophils (% ) (Auto) 0, Blood Morphology Comment NORMAL, Blood Urea Nitrogen 13, Calcium Level 8.9, Carbon Dioxide Level 20, Chloride Level 106, Creatinine 0.73, Eosinophils # (Auto) 0.0, Eosinophils % (Manual) 0, Eosinophils (%) (Auto) 0, Estimat Glomerular Filtration Rate > 60, Glucose Level 177, Hematocrit 41, Hemoglobin 14.0, Lymphocytes # (Auto) 1.3, Lymphocytes % (Manual) 12, Lymphocytes (%) (Auto) 8, Mean Corpuscular Hemoglobin 31, Mean Corpuscular Hemoglobin Concent 34, Mean Corpuscular Volume 91, Mean Platelet Volume 10.0, Monocytes # (Auto) 0.5, Monocytes % (Manual) 1, Monocytes (%) (Auto) 3, Neutrophils # (Auto) 15.6, Neutrophils % (Manual) 86, Neutrophils (%) (Auto) 89 , Platelet Count 297, Potassium Level 4.1, Red Blood Count 4.49, Red Cell Distribution Width 13.6, Sodium Level 137, Total Bilirubin 0.3, Total Protein 6.8, White Blood Count 17.5 Discharge Home Medications: Active Scripts Active Iprat-Albut 0.5-3(2.5) mg/3 ml (Ipratropium/Albuterol Sulfate) 3 Ml Ampul.neb 3 Ml INH RTQ4HR Augmentin 875-125 Tablet (Amoxicillin/Potassium Clav) 1 Each Tablet 1 Each PO BID Prednisone 10 Mg Tab.ds.pk 10 Mg PO DAILY Take 6 tabs(60mg)daily,decrease by 1 tab(10mg)every other day. Lactulose 20 Gm/30 Ml Solution 10 Gm PO BID PRN Reported Alprazolam 0.5 Mg Tablet 0.5 Mg PO DAILY PRN Hydroxyzine Pamoate 25 Mg Capsule 25 Mg PO QID PRN Advair 250-50 Diskus (Fluticasone/Salmeterol) 1 Each Blst.w.dev 1 Puff IH BID HAS NOT PICKED UP FROM PHARMACY YET Trazodone HCl 100 Mg Tablet 100 Mg PO HS Remeron (Mirtazapine) 30 Mg Tablet 45 Mg PO HS TAKES 1 & 1/2 OF A (30 MG) TABLET Instructions to patient/family Please see electonic discharge instructions given to patient. Clinical Quality Measures DVT/VTE Risk/Contraindication: Risk Factor Score Per Nursin RFS Level Per Nursing on Admit: 2=Moderate YASH ANDERSEN DO Oct 23, 2016 09:30
== END 2016-10-23 10:50 | disposition home or self-care (01) | DRG 203 ==
LOC: 4TH 14:55
PROVIDERS: ADMIT Internal Medicine; ATTEND Internal Medicine
DX: J45.902 Unspecified asthma with status asthmaticus (principal); F32.9 Major depressive disorder, single episode, unspecified; F41.9 Anxiety disorder, unspecified; F17.210 Nicotine dependence, cigarettes, uncomplicated; R09.02 Hypoxemia; R74.8 Abnormal levels of other serum enzymes; E11.9 Type 2 diabetes mellitus without complications; E78.5 Hyperlipidemia, unspecified; E66.9 Obesity, unspecified
CPT/HCPCS: 36415; 71020; 71275; 80053; 81000; 82805; 83605; 83880; 84484; 85007; 85025; 85027; 85610; 85730; 87040; 93005; 94640; 94760; 94761

== ENCOUNTER 2017-01-02 07:15 | Outpatient (CLI) | payer BC ==
[~2017-01-02] VITALS: Ht 170.2 cm; Wt 99.8 kg
[~2017-01-02 07:15] MED LIST: ALPR0.5T7 PO; AMOX-358 PO; FLUT1DIS26 IH; HYDR-3781 PO; IPRA3AMP INH; LACT20SO2 PO; MIRT30TA PO; PRED10TA22 PO; TRAZ100T92 PO
[2017-01-02] MEDS ORDERED: TRIAMCINOLONE ACET (KENALOG-40) 40 MG/ML 1 ML VIAL ONE (07:29)
[2017-01-02] MEDS ORDERED: BUPIVACAINE 0.25% 30 ML (SENSORCAINE) VIAL ONE (07:29)
[2017-01-02 07:30] VITALS: BP 136/103
[2017-01-02 08:03] VITALS: BP 151/106
--- NOTE | 2017-01-02 12:28 | Pain Medicine-Procedure ---
Procedure Pre-Op/Post-Op Diagnosis Diagnosis: disc disorder with radiculopathy, lumbar Indications for Operation Back pain Attending Surgeon Coy Procedure Date of Service: Jan 02, 2017 Procedure: Lumbar Epidural Steroid Injection at the L5-S1 level under Fluoroscopic Guidance Procedure: Patient was identified in the holding area. After risks, benefits, and alternatives were discussed with the patient, informed consent was obtained. Patient was brought to the fluoroscopy suite and placed prone on the procedure room table. A time out was performed. Vital signs were monitored throughout the procedure. The patients low back was prepped and draped in the usual sterile fashion. The patients skin was anesthetized using 2% Lidocaine. A Tuohy needle was inserted and advanced to the L5-S1 epidural space under fluoroscopic guidance using the loss of resistance technique and intermittent projection of fluoroscopy. There was no paresthesia with needle placement. The needle position was confirmed in both the AP and lateral view. After negative aspiration 2ml of contrast was injected under live fluoroscopy which showed good spread of the contrast in the epidural space at the appropriate level, there was no intravascular or subarachnoid spread. Again, after negative aspiration for heme or CSF, 2 ml of 0.25% Bupivicaine, 2ml of preservative free normal saline, and 80mg of Kenalog was injected. The needle was removed and a sterile bandage was placed and the patient was transferred to the recovery area in stable condition. After a brief period of observation, patient was discharged to home with no new neurological deficits and no apparent complications. Complications None NICHOLAS ANG MD Jan 02, 2017 12:28 pm
== END 2017-01-02 08:04 | disposition home or self-care (01) ==
LOC: CARD 07:15
PROVIDERS: ATTEND Pain Medicine Pain Medicine
DX: M51.16 Intervertebral disc disorders with radiculopathy, lumbar region (principal); Z79.899 Other long term (current) drug therapy
CPT/HCPCS: 62323

== ENCOUNTER → 2017-07-17 | Outpatient (CLI) | payer BC ==
--- NOTE | 2017-07-20 13:13 | Diagnostic Imaging Report ---
Bilateral screening mammogram 2D views with tomosynthesis The current study was also evaluated with a Computer Aided Detection (CAD) system. INDICATION: Screening. No current complaints stated on the questionnaire. COMPARISON: None. This is a baseline exam. FINDINGS: The breasts are composed of extremely dense parenchyma which would decrease mammographic sensitivity. There is an 8-mm oval asymmetry along the upper aspect of the left breast seen on the left MLO view with circumscribed margins. This is in favor of benign etiology. Benign-appearing punctate calcifications in the upper outer aspect of each breast are seen. No definite mass, architectural distortion, or suspicious focal cluster of calcifications noted. IMPRESSION: Focal compression view evaluation is recommended for upper left breast asymmetry. Extremely dense breasts. Bilateral breast ultrasound is also recommended. ACR BI-RADS Category 0: Incomplete. (Needs additional imaging evaluation). Result letter will be mailed to the patient. Note: At least 10% of breast cancer is not imaged by mammography. Dictated by: Dictated on workstation # [id number]
== END ==
LOC: RAD 13:37
PROVIDERS: ATTEND Internal Medicine
DX: Z12.31 Encounter for screening mammogram for malignant neoplasm of breast (principal); N64.89 Other specified disorders of breast
CPT/HCPCS: 77067

== ENCOUNTER → 2021-02-04 | Outpatient (CLI) | payer BC ==
[~2021-02-04] MED LIST changes: -IPRA3AMP INH; +IPRA3AMP31 INH; +MIRT-94 PO; -MIRT30TA PO; +TRAZ-227 PO; -TRAZ100T92 PO
--- NOTE | 2021-02-04 17:06 | Diagnostic Imaging Report ---
INDICATION: Right foot pain. FINDINGS: Three views of the right foot show no fracture, dislocation, or other acute abnormalities. IMPRESSION: Negative right foot. Dictated by: Dictated on workstation # [id number]
--- NOTE | 2021-02-04 18:23 | Diagnostic Imaging Report ---
INDICATION: Right ankle pain Three views of the right ankle show no fracture, dislocation or other acute abnormalities. IMPRESSION: Unremarkable right ankle. Dictated by: Dictated on workstation # [id number]
== END ==
LOC: RAD 14:25
PROVIDERS: ATTEND Internal Medicine
DX: M25.571 Pain in right ankle and joints of right foot (principal); M79.671 Pain in right foot
CPT/HCPCS: 73610; 73630

== ENCOUNTER → 2021-06-10 | Outpatient (CLI) | payer BC ==
--- NOTE | 2021-06-11 10:03 | Diagnostic Imaging Report ---
Indication: Routine screening. Comparison is made with prior mammogram from 07/17/2017. 2-D and 3-D bilateral screening mammography was performed with CAD. Both breasts are heterogeneously dense, limiting sensitivity of mammography. There are benign calcifications scattered throughout both breasts. Circumscribed nodule in the outer left breast previously noted is stable. No new mass or malignant-appearing microcalcifications are seen. Axillae are unremarkable. IMPRESSION: BI-RADS Category 2 No mammographic features suspicious for malignancy are identified. Dictated by: Dictated on workstation # [id number]
== END ==
LOC: RAD 15:45
PROVIDERS: ATTEND Internal Medicine
DX: Z12.31 Encounter for screening mammogram for malignant neoplasm of breast (principal)
CPT/HCPCS: 77063; 77067

== ENCOUNTER → 2022-01-09 | Outpatient (CLI) | payer BC ==
--- NOTE | 2022-01-09 14:55 | Diagnostic Imaging Report ---
INDICATION: Palpable lumps in the right breast. COMPARISON: Prior mammograms from 06/10/2021 and 07/17/2017. TECHNIQUE: Unilateral right 2D and 3D diagnostic mammography was performed with CAD. A BB marker was placed at the areas of palpable abnormality in the medial and lateral right breast. FINDINGS: The right breast shows marked parenchymal heterogeneity and increased density, limiting the sensitivity of mammography. There are scattered benign calcifications present. No mass is detected. No malignant appearing microcalcifications are seen. The right axilla is unremarkable. IMPRESSION: No mammographic features suspicious for malignancy are identified. Even so, directed sonographic interrogation of the areas of palpable abnormality is recommended and will be performed today. ACR BI-RADS Category 0: Incomplete. (Needs additional imaging evaluation). Result letter will be mailed to the patient. Note: At least 10% of breast cancer is not imaged by mammography. Dictated by: Dictated on workstation # [id number]
--- NOTE | 2022-01-09 15:07 | Diagnostic Imaging Report ---
INDICATION: Palpable lumps in the right breast. COMPARISON: Correlation is made with the diagnostic mammogram from earlier this same day. FINDINGS: Sonographic interrogation of the outer right breast at the 10 o'clock location was performed. There is marked heterogeneous breast tissue. There appear to be multiple small cysts at the 10 o'clock location 7 cm from the nipple. There appears to be a probable complex cyst at this location measuring 9 mm x 5 mm x 8 mm. No internal vascularity. No posterior acoustic shadowing is seen. Survey of the medial right breast at areas of palpable abnormality was performed as well. No sonographic abnormality is detected. No solid or cystic mass is detected. IMPRESSION: Sonographic interrogation of the medial and lateral right breast at areas of palpable abnormality was performed. There appear to be multiple cysts in the upper outer right breast, likely accounting for the palpable abnormality. One small cyst does appear to be complicated. No solid masses are seen. The patient may return to routine annual screening mammography. ACR BI-RADS Category 2: Benign findings. Dictated by: Dictated on workstation # [id number]
== END ==
LOC: RAD 14:15
PROVIDERS: ATTEND Internal Medicine
DX: N63.10 Unspecified lump in the right breast, unspecified quadrant (principal)
CPT/HCPCS: 76642; 77065; G0279

== ENCOUNTER → 2022-10-15 | Outpatient (CLI) | payer BC ==
--- NOTE | 2022-10-15 13:30 | Diagnostic Imaging Report ---
Indication: Pain in the lateral aspect right breast. Correlation is made with prior mammogram from 06/10/2021 and 07/17/2017. 2-D and 3-D bilateral diagnostic mammography was performed with CAD. CAD is utilized. The current study was also evaluated with a Computer Aided Detection (CAD) system. Both breasts show marked parenchymal heterogeneity and increased density, limiting the sensitivity of mammography. Overall parenchymal pattern is stable. There are benign calcifications throughout both breasts which appear stable. No mass or malignant-appearing microcalcifications are seen. Axillae are unremarkable. IMPRESSION: BI-RADS 0 No mammographic features suspicious for malignancy are identified. Even so, directed sonographic interrogation of the area of pain in the right breast is recommended and will be performed today. ACR BI-RADS Category 0: Incomplete. (Needs additional imaging evaluation). Result letter will be mailed to the patient. Note: At least 10% of breast cancer is not imaged by mammography. Dictated by: Dictated on workstation # [id number]
--- NOTE | 2022-10-15 15:51 | Diagnostic Imaging Report ---
INDICATION: Pain in the right breast. Correlation is made with diagnostic mammogram earlier the same day. Interrogation of the area of pain right breast was performed. This corresponds to the 9 to 10 o'clock location as well as the retroareolar region. Dense heterogeneous breast tissue is noted. No sonographic abnormality is identified. No solid or cystic mass is detected. IMPRESSION: No sonographic abnormality is detected. ACR BI-RADS Category 1: Negative. Result letter will be mailed to the patient. Note: At least 10% of breast cancer is not imaged by mammography. BI-RADS Category 1 Dictated by: Dictated on workstation # [id number]
== END ==
LOC: RAD 13:15
PROVIDERS: ATTEND Internal Medicine
DX: N63.20 Unspecified lump in the left breast, unspecified quadrant (principal); N63.10 Unspecified lump in the right breast, unspecified quadrant
CPT/HCPCS: 76642; 77066; G0279; 77062